=== PATIENT | male | born 1985 | race Two or more races ===

== ENCOUNTER 2018-03-23 04:01 | Emergency (ER) | payer SELFPAY ==
[~2018-03-23] VITALS: Ht 172.7 cm; Wt 86.2 kg
[2018-03-23] VITALS (7 sets, daily range): BP systolic 101–129; BP diastolic 52–82
[2018-03-23] MEDS ORDERED: METFORMIN HCL1000 M2 ORAL (04:08)
[2018-03-23] MEDS ORDERED: Ketorolac 30mg Inj IV ONE (04:15)
[2018-03-23] MEDS ORDERED: Isovue-300 100ml vial INJ PRN (04:15)
[2018-03-23] MEDS ORDERED: Morphine Sulfate 4mg/ml Inj (IV USE ONLY) IVP ONE (04:15)
[2018-03-23 04:29] LABS: BASOPHILS % (AUTO) 0.9 % (0.0-2.0); EOSINOPHILS % (AUTO) 0.7 % (0.0-3.0); HEMATOCRIT 46.2 % (42.0-52.0); HEMOGLOBIN 16.6 G/DL (14.2-18.0); LYMPHOCYTES % (AUTO) 40.6 % (20.0-45.0); MEAN CORPUSCULAR VOLUME 88 FL (80-99); MONOCYTES % (AUTO) 6.3 % (1.0-10.0); NEUTROPHILS % (AUTO) 51.5 % (45.0-75.0); PLATELET COUNT 273 K/UL (150-450); RED BLOOD COUNT 5.24 M/UL (4.70-6.10); WHITE BLOOD COUNT 10.5 K/UL (4.8-10.8)
[2018-03-23 04:44] LABS: ANION GAP 11 mmol/L (5-15); BLOOD UREA NITROGEN 10 mg/dL (7-18); CARBON DIOXIDE 26 MMOL/L (21-32); CHLORIDE 100 MMOL/L (98-107); POTASSIUM 3.7 MMOL/L (3.5-5.1); SODIUM 136 MMOL/L (136-145)
[2018-03-23 04:49] LABS: ALANINE AMINOTRANSFERASE 24 U/L (12-78); ALBUMIN 3.9 G/DL (3.4-5.0); ALBUMIN/GLOBULIN RATIO 1.1 (1.0-2.7); ALKALINE PHOSPHATASE 147 U/L (46-116); ASPARTATE AMINO TRANSFERASE 6 U/L (15-37); BILIRUBIN,TOTAL 0.2 MG/DL (0.2-1.0)
[2018-03-23 04:59] LABS: APPEARANCE,URINE CLEAR; BILIRUBIN, URINE NEGATIVE (NEGATIVE); COLOR,URINE PALE YELLOW; GLUCOSE, URINE (UA) 4+ (NEGATIVE); KETONES,URINE NEGATIVE (NEGATIVE); LEUKOCYTE ESTERASE ,URINE NEGATIVE (NEGATIVE); NITRITE,URINE NEGATIVE (NEGATIVE); PH,URINE 6.5 (4.5-8.0); PROTEIN,URINE NEGATIVE (NEGATIVE); UROBILINOGEN,URINE NORMAL MG/DL (0.0-1.0)
[2018-03-23] MEDS ORDERED: HYDROmorphone 1mg/ml Carpuject IVP ONE (05:00)
--- NOTE | 2018-03-23 05:07 | Emergency Room Report ---
History of Present Illness General Chief Complaint: Abdominal Pain Source: Patient (Martinez Sullivan MD) Present Illness HPI 32-year-old male presents ED for evaluation of abdominal pain. Started 3 hours ago after drinking alcohol. Visiting from [place]. Pain is 10 out of 10, sharp, localized to right upper quadrant, radiating to the back. Also notes blood in his urine. Denies drug use. Denies chest pain or shortness of breath. Denies fevers or chills. No other aggravating relieving factors. Denies any other associated symptoms (Martinez Sullivan MD) Allergies: Coded Allergies: No Known Allergies (Unverified , 03/23/18) Patient History Past Medical History: DM Past Surgical History: none Pertinent Family History: none Social History: Reports: alcohol use; Denies: smoking, drug use Immunizations: UTD Reviewed Nursing Documentation: PMH: Agreed; PSxH: Agreed (Martinez Sullivan MD) Nursing Documentation-PMH Past Medical History: No History, Except For Hx Diabetes: Yes - DM2 (Martinez Sullivan MD) Review of Systems All Other Systems: negative except mentioned in HPI (Martinez Sullivan MD) Physical Exam Vital Signs Date Time Temp Pulse Resp B/P (MAP) Pulse Ox O2 Delivery O2 Flow Rate FiO2 03/23/18 04:04 98.1 123 22 137/86 97 Room Air 98.1 Sp02 EP Interpretation: reviewed, normal General Appearance: alert, GCS 15, non-toxic, mild distress Head: normocephalic, atraumatic Eyes: bilateral eye normal inspection, bilateral eye PERRL ENT: hearing grossly normal, normal pharynx, no angioedema, normal voice Neck: full range of motion, supple/symm/no masses Respiratory: chest non-tender, lungs clear, normal breath sounds, speaking full sentences Cardiovascular #1: regular rate, rhythm, no edema Cardiovascular #2: 2+ carotid (R), 2+ carotid (L), 2+ radial (R), 2+ radial (L) , 2+ dorsalis pedis (R), 2+ dorsalis pedis (L) Gastrointestinal: normal bowel sounds, soft, non-distended, no rebound, guarding, tenderness - RUQ Rectal: deferred Genitourinary: normal inspection, CVA tenderness (R) Musculoskeletal: back normal, gait/station normal, normal range of motion, non- tender Neurologic: alert, oriented x3, responsive, motor strength/tone normal, sensory intact, speech normal Psychiatric: judgement/insight normal, memory normal, mood/affect normal, no suicidal/homicidal ideation Reflexes: 3+ bicep (R), 3+ bicep (L), 3+ tricep (R), 3+ tricep (L), 3+ knee (R) , 3+ knee (L) Skin: normal color, no rash, warm/dry, well hydrated Lymphatic: no adenopathy (Martinez Sullivan MD) Medical Decision Making Diagnostic Impression: Primary Impression: Abdominal pain Additional Impression: Alcohol intoxication ER Course I received this patient as a transfer waiting to be sent to [facility] for a CT scan. However, our CT scan is now working, an ultrasound was obtained which revealed normal gallbladder, no gallstones, normal CBD, just evidence of fatty liver. Patient is now pending results of CT abdomen and pelvis, his labs , urinalysis, remainder of workup is unremarkable other than elevated alcohol level and minimally elevated alkaline phosphatase and Hyperglycemia and glycosuria. CT now resulted, no acute disease, patient got haldol, no further vomiting, will dc with pepcid rx. Repeat abd exam also benign. dx abd pain and etoh abuse. (YESSENIA PARIKH M.D) Rhythm Strip Diag. Results Rhythm Strip Time: 09:00 EP Interpretation: yes Rate: 74 Rhythm: NSR, no PVC's, no ectopy (YESSENIA PARIKH M.D) CT/MRI/US Diagnostic Results CT/MRI/US Diagnostic Results : Imaging Test Ordered: ct abd pelvis Impression no acute dz (YESSENIA PARIKH M.D) Last Vital Signs Date Time Temp Pulse Resp B/P (MAP) Pulse Ox O2 Delivery O2 Flow Rate FiO2 03/23/18 04:58 98.2 03/23/18 04:43 100 17 129/81 97 Room Air (Martinez Sullivan MD) Disposition: HOME, SELF-CARE Condition: Stable Referrals: NOT CHOSEN IPA/,REFERRING (PCP) Martinez Sullivan MD Mar 23, 2018 05:07 YESSENIA PARIKH M.D Mar 23, 2018 09:00
[2018-03-23] MEDS ORDERED: Haloperidol 5mg/ml Inj IM ONE (09:00)
[2018-03-23] MEDS ORDERED: LORazepam 1mg tab ORAL ONE (09:00)
--- NOTE | 2018-03-23 09:43 | Diagnostic Imaging Report ---
Indication: Abdominal pain Technique: Continuous helical transaxial imaging of the abdomen and pelvis was obtained from the lung bases to the pubic symphysis during intravenous contrast administration. Coronal 2-D reformats were also obtained. Study obtained in a Siemens sensation [address] Automatic Exposure Control was utilized. Total Dose length Product (DLP): 924.[address] Dose Index Volume (CTDIvol): 16.82 mGy Comparison: None Findings: There is mild posterior basilar reticulation. This is likely due to atelectasis. Appendix is normal. The liver and spleen, gallbladder, pancreas and kidneys, adrenal glands are unremarkable. Appendix is normal. No free fluid or free air or evidence of bowel obstruction. Mild concentric disc bulge noted at L4-5 likely incidental. IMPRESSION: No acute findings identified within the abdomen or pelvis. Mild posterior basal atelectasis. L4-[address] scanner at [facility] is accredited by the [employer] and the scans are performed using dose optimization techniques as appropriate to a performed exam including Automatic Exposure control.
[2018-03-23] MEDS ORDERED: PEPCID AC20 M2 PO (10:09)
--- NOTE | 2018-03-23 13:15 | Diagnostic Imaging Report ---
Indication: Right flank and abdominal pain. Hematuria Technique: Grayscale and duplex Doppler imaging of the abdomen performed. Comparison: None Findings: The liver may be mildly echogenic slightly prominent measuring about 18 cm. The gallbladder is noted. The demonstrated part of the pancreas, aorta and IVC show no abnormalities. Both kidneys appear unremarkable. The spleen is normal in size. There is no biliary ductal dilatation identified. Doppler evaluation of the main portal vein shows patency. There is no ascites. No hydronephrosis seen. No renal stones are identified on this study. Impression: Mild hepatomegaly with suspected mild fatty liver. Negative exam otherwise
== END 2018-03-23 10:32 | disposition home or self-care (01) ==
LOC: EMR 04:12
DX: F10.129 Alcohol abuse with intoxication, unspecified (principal); E11.9 Type 2 diabetes mellitus without complications; R16.0 Hepatomegaly, not elsewhere classified
CPT/HCPCS: 36415; 74177; 76700; 80053; 81003; 83690; 85025; 96361; 96372; 96374; 96375; 99284; G0480; J1170; J1630; J1885; J2270; J2405; Q9967; S0028; 80329